=== PATIENT | female | born 1980 | race Caucasian/White ===

== ENCOUNTER 2016-09-14 17:08 | Emergency (ER) | payer MEDICARE, OTHER, MEDICAID ==
--- NOTE | 2016-09-14 17:11 | EDM.PDOC ---
ED HPI GENERAL MEDICAL PROBLEM - General Chief Complaint: Behavioral/Psych Stated Complaint: CANT STOP VOMITING, ANXIETY ATTACK [id number] Time Seen by Provider: 09/14/16 17:10 Source of Information: Reports: Patient, Old Records, RN, RN Notes Reviewed History Limitations: Reports: No Limitations - History of Present Illness INITIAL COMMENTS - FREE TEXT/NARRATIVE: Woke with mild nausea and didn't feel very well, then became anxious and had a panic attack. Has history of same symptoms in past. Severity: Severe Improves with: Reports: None Worsens with: Reports: None Associated Symptoms: Reports: No Other Symptoms - Related Data Allergies Allergy/AdvReac Type Severity Reaction Status Date / Time metoclopramide [From Reglan] Allergy Anxiety Verified 09/14/16 17:18 Home Meds: Home Meds . [No Known Home Meds] 09/14/16 [History] Citalopram [Celexa] 20 mg PO DAILY 09/14/16 [History] Temazepam 25 mg PO DAILY 09/14/16 [History] lamoTRIgine [Lamotrigine] 100 mg PO DAILY 09/14/16 [History] Past Medical History Psychiatric History: Reports: Anxiety ED ROS GENERAL - Review of Systems Review Of Systems: ROS reveals no pertinent complaints other than HPI. ED EXAM, BEHAVIORAL HEALTH - Physical Exam Exam: See Below Exam Limited By: No Limitations General Appearance: Other (active emeis/dry heaves) Eye Exam: Bilateral Eye: Normal Inspection Ears: Normal External Exam, Normal Canal, Hearing Grossly Normal, Normal TMs Nose: Normal Inspection, Normal Mucosa, No Blood Throat/Mouth: Normal Inspection, Normal Lips, Normal Teeth, Normal Gums, Normal Oropharynx, Normal Voice, No Airway Compromise Head: Atraumatic, Normocephalic Neck: Normal Inspection, Supple, Non-Tender, Full Range of Motion Respiratory/Chest: No Respiratory Distress, Lungs Clear, Normal Breath Sounds, No Accessory Muscle Use, Chest Non-Tender Cardiovascular: Normal Peripheral Pulses, Regular Rate, Rhythm, No Edema, No Gallop, No JVD, No Murmur, No Rub GI/Abdominal: Normal Bowel Sounds, Soft, Non-Tender, No Organomegaly, No Distention, No Abnormal Bruit, No Mass (Female) Exam: Deferred Rectal (Female) Exam: Deferred Back Exam: Normal Inspection, Full Range of Motion, NT Extremities: Normal Inspection, Normal Range of Motion, Non-Tender, Normal Capillary Refill, No Pedal Edema Neurological: Alert, Normal Mood/Affect, CN II-XII Intact, Normal Cognition, Normal Gait, Normal Reflexes, No Motor/Sensory Deficits, Oriented x 3 Psychiatric: Tearful, Other (anxious) Skin Exam: Warm, Dry, Intact, Normal color, No rash COURSE, BEHAVIORAL HEALTH COMP - Course Vital Signs: Last Vital Signs Temp 35.3 C 09/14/16 17:20 Pulse 92 09/14/16 17:20 Resp 24 H 09/14/16 17:20 BP 120/102 H 09/14/16 17:20 Pulse Ox 100 09/14/16 17:20 Orders, Labs, Meds: Medications Discontinued Medications Generic Name Dose Route Start Last Admin Trade Name Freq PRN Reason Stop Dose Admin Lorazepam 2 mg 09/14/16 17:18 Ativan IM 09/14/16 17:19 ONETIME ONE Promethazine HCl 25 mg 09/14/16 17:19 Phenergan IM 09/14/16 17:20 ONETIME ONE Departure - Departure Time of Disposition: 17:25 Disposition: Home, Self-Care 01 Condition: fair Clinical Impression: Panic disorder [episodic paroxysmal anxiety] without agoraphobia, Anxiety Nausea and vomiting Qualifiers: Vomiting type: unspecified Vomiting Intractability: unspecified Qualified Code( s): R11.2 - Nausea with vomiting, unspecified - Discharge Information Instructions: Panic Attacks, [id number] Forms: ED Department Discharge Additional Instructions: Follow up in clinic or return to ER if not improved by tomorrow.
[2016-09-14] MEDS ORDERED: LORazepam 2 MG/ML Syringe IM ONE (17:18)
[2016-09-14] MEDS ORDERED: Promethazine 25 MG/ML SDV IM ONE (17:19)
[2016-09-14 17:26] VITALS: BP 120/102
== END 2016-09-14 17:55 | disposition home or self-care (01) ==
LOC: DL.ED 17:08
DX: F41.0 Panic disorder [episodic paroxysmal anxiety] (principal); F41.8 Other specified anxiety disorders; R11.2 Nausea with vomiting, unspecified; Z88.8 Allergy status to other drugs, medicaments and biological substances; Z79.899 Other long term (current) drug therapy
CPT/HCPCS: 96372; 99283; J2060; J2550